=== PATIENT | female | born 2000 ===

== ENCOUNTER → 2023-06-08 | Outpatient (CLI) | payer OTHER ==
--- NOTE | 2023-06-08 12:58 | US ---
EXAMINATION TYPE: US OB >= 14 wk fetus DATE OF EXAM: 06/08/2023 COMPARISON: 05/12/2023 CLINICAL INDICATION: Female, 23 years old with history of Z34.90 SUPRVSN OF NORMAL ; Supervi wilfred of normal TECHNIQUE: Transabdominal (TA) GESTATIONAL AGE / DATING Physician Established: (14 weeks/3 days) EDC: 12/04/2023 Dates by LMP: (14 weeks/3 days) EDC: 12/04/2023 Dates by First Scan: (14 weeks/5 days) EDC: 12/02/2023 Dates by Current Scan: (14 weeks/5 days) EDC: 12/02/2023 Beta HCG (if available): Not available at this time SURVEY IUP: Single PLACENTA: Posterior There is a 1.0 x 0.6 x 0.7cm anechoic area seen. No internal color flow. Howev er, consider maternal de león. PREVIA: Questionable low lying. Can be better evaluated at anatomy scan. ERYN: 11.64 cm Normal CERVICAL LENGTH (transabdominal: norm > 3.0cm): 3.4 cm BIOMETRY PRESENTATION: Variable LIE: Transverse with head maternal R BPD: 2.95 cm 15 weeks / 3 days HC: 10.61 cm 15 weeks / 1 days AC: 8.09 cm 14 weeks / 4 days FL: 1.23 cm 13 weeks / 5 days ESTIMATED WEIGHT IN GRAMS: 91 grams ESTIMATED WEIGHT IN LBS/OZ: 0 lbs. 3 oz. WEIGHT PERCENTAGE BASED ON ESTABLISHED DATES: 19% HC/AC: 1.31 Normal FL/AC: 15% HEART RATE: 156 bpm RHYTHM: Normal IMPRESSION: 1 Single intrauterine gestation estimated at 14 weeks 4 days gestation based on current ultrasound me asurements. Cardiac activity measures 156 bpm. 2. Placenta may be low lying. Reevaluation in the short-term is recommended.
== END | disposition home or self-care (01) ==
LOC: RADUSWWP 10:30
PROVIDERS: ATTEND Obstetrics & Gynecology
DX: Z34.92 Encounter for supervision of normal pregnancy, unspecified, second trimester (principal)
CPT/HCPCS: 76805

== ENCOUNTER → 2023-07-31 | Outpatient (CLI) | payer OTHER ==
--- NOTE | 2023-07-31 19:49 | US ---
EXAMINATION TYPE: US OB anatomy transabd DATE OF EXAM: 07/31/2023 COMPARISON: NONE CLINICAL INDICATION: Female, 23 years old with history of Z34.90 SUPERVISION OF NORMAL ; TECHNIQUE: Transabdominal (TA) EXAM MEASUREMENTS: GESTATIONAL AGE / DATING Physician Established: (22 weeks/0 days) EDC: 12/04/23 Dates by LMP: LMP unknown Dates by First Scan: (22 weeks/0 days) EDC: 12/04/23 Dates by Current Scan for: (22 weeks/2 days) EDC: 12/02/23 SURVEY IUP: Single PLACENTA: Posterior PREVIA: No previa ERYN: 10.6 cm Normal CERVICAL LENGTH (transabdominal: norm > 3.0cm): 4.1 cm BIOMETRY PRESENTATION: Vertex LIE: Longitudinal BPD: 5.1 cm 21 weeks / 4 days HC: 19.7 cm 22 weeks / 0 days AC: 17.8 cm 22 weeks / 5 days FL: 3.9 cm 22 weeks / 4 days ESTIMATED WEIGHT IN GRAMS: 509 grams ESTIMATED WEIGHT IN LBS/OZ: 1 lbs. 2 oz. WEIGHT PERCENTAGE BASED ON ESTABLISHED DATE: 69 % HC/AC: 1.11 Normal FL/AC: 22% Normal HEART RATE: 156 bpm RHYTHM: Normal ANATOMY SEEN (within normal limits): * Lateral Vent (< 1 cm) 0.5 cm * Cisterna Magna (< 1.1 cm) 0.6 cm * Nuchal Fold (< 0.6 cm) 0.5 cm * Cerebellum (varies with age) 2.1 cm Choroid Plexus (bilateral) Midline Falx Cavus Septi Pellucidi Four Chamber Heart Outflow tracts: LVOT/RVOT Stomach Situs Nose / Lips Diaphragm Kidneys (bilateral) Bladder Cord Insert Three Vessel Cord Longitudinal Spine Transverse Spine Arms (bilateral) Legs (bilateral) IMPRESSION: Single live intrauterine gestation with ultrasound age 22 weeks 2 days. Additional information as linda cribed above.
== END | disposition home or self-care (01) ==
LOC: RADUSWWP 15:22
PROVIDERS: ATTEND Obstetrics & Gynecology
DX: Z34.92 Encounter for supervision of normal pregnancy, unspecified, second trimester (principal); Z3A.23 23 weeks gestation of pregnancy
CPT/HCPCS: 76811

== ENCOUNTER 2023-11-27 06:00 | Inpatient (IN) | payer OTHER ==
[2023-11-27] MEDS: LACTATED RINGERS 1,000 ML IV SCH (06:23)
[2023-11-27] MEDS ORDERED: miSOPROStoL 200 MCG TAB PO PRN (06:25)
[2023-11-27] MEDS ORDERED: OXYTOCIN 10 UNIT/ML 1 ML VIAL IM PRN (06:25)
[2023-11-27] MEDS ORDERED: TRANEXAMIC 1,000 MG/100ML-NACL 1,000 MG in EMPTY BAG 1 BAG IV PRN (06:25)
[2023-11-27] MEDS ORDERED: CARBOPROST TROMETHAMINE 250 MCG/ML 1 ML AMP IM PRN (06:25)
[2023-11-27] MEDS ORDERED: miSOPROStoL 200 MCG TAB RECTAL PRN (06:25)
[2023-11-27] MEDS ORDERED: TERBUTALINE 1 MG/ML VIAL SQ PRN (06:25)
[2023-11-27] MEDS ORDERED: METHYLERGONOVINE 0.2 MG/ML 1 ML AMP IM PRN (06:25)
[2023-11-27] MEDS: OXYTOCIN 30 UNITS/500 ML NS 30 UNIT in SALINE 1 500ML.BAG IV SCH (06:30)
[2023-11-27 06:50] LABS: Basophils % (A) 1 %; Eosinophils # (A) 0.1 k/uL (0-0.7); Eosinophils % (A) 1 %; HCT 36.9 % (34.0-46.0); Lymphocytes % (A) 27 %; MCHC 32.6 g/dL (31.0-37.0); MCV 92.1 fL (80.0-100.0); Monocytes # (A) 0.4 k/uL (0-1.0); Monocytes % (A) 5 %; Neutrophils # (A) 4.6 k/uL (1.3-7.7); Neutrophils % (A) 64 %; Platelet Count 216 k/uL (150-450); WBC 7.2 k/uL (3.8-10.6)
--- NOTE | 2023-11-27 07:02 | P.HPOB ---
History of Present Illness H&P Date: 11/27/23 Chief Complaint: induction of labor Ms. Guerra is a 23 year old at 39 weeks and 0 days gestation with EDC 12/04/2023 by LMP consistent with 14 week US who presents for elective induction of labor. The has been uncomplicated. The fetus is estimated to be average for gestational age. work-up: blood type O positive, antibody screen negative, rubella im mune, VDRL non-reactive, HBsAg negative, HIV negative, HCV Ab negative, gonorrhea negative, chalmydia negative, 1 hour GTT wnl, GBS negative. s/p TDap. Past Medical History Past Medical History: No Reported History History of Any Multi-Drug Resistant Organisms: None Reported Past Surgical History: No Surgical Hx Reported Past Anesthesia/Blood Transfusion Reactions: No Reported Reaction Past Psychological History: No Psychological Hx Reported Smoking Status: Never smoker Past Alcohol Use History: None Reported Past Drug Use History: None Reported - Past Family History Mother Family Medical History: No Reported History Medications and Allergies Home Medications Medication Instructions Recorded Confirmed Type Pnv No.154/Iron Fum/Folic Acid 1 tablet PO DAILY 11/27/23 11/27/23 History [ Plus Vitamin Tablet] Allergies Allergy/AdvReac Type Severity Reaction Status Date / Time No Known Allergies Allergy Verified 11/27/23 06:24 Exam Vital Signs Temp Pulse Resp BP Pulse Ox 11/27/23 06:24 97.0 F L 95 16 111/75 98 Intake and Output 11/26/23 11/26/23 11/27/23 14:59 22:59 06:59 Other: Weight 78.471 kg Focused physical exam is performed. This is a healthy-appearing in no apparent distress. Breathing is non-labored. Abdomen is gravid and non-tender. Cervical exam is 5 cm, 80 effacement, -2 station. AROM is undertaken with clear fluid noted. Extremities non-tender and non-edematous. heart tones are Category I and tocometer is graphing intermittent contractions. Results Result Diagrams: 11/27/23 06:25 Assessment and Plan Assessment: 23 year old at 39 weeks gestations presenting for induction of labor Plan: Admit, clear liquid diet, pitocin per protocol, epidural prn, anticipate vaginal delivery.
[2023-11-27] MEDS ORDERED: NALBUPHINE 10 MG/ML (10 ML MDV) IV PRN (08:15)
[2023-11-27] MEDS ORDERED: ROPIVACAINE 5 MG/ML 30 ML VIAL ONE (08:36)
[2023-11-27] MEDS ORDERED: fentaNYL (PF) 50 MCG/ML 5 ML AMP ONE (08:36)
[2023-11-27] MEDS ORDERED: SODIUM CHLORIDE 0.9% 250 ML BAG ONE (08:36)
[2023-11-27] MEDS: LIDOCAINE 0.5% (PF) 5 MG/ML (50 ML SDV) SQ PRN (11:42)
[2023-11-27] MEDS ORDERED: LANOLIN CREAM 1 GM TUBE TOPICAL PRN (12:12)
[2023-11-27] MEDS ORDERED: BENZOCAINE/MENTHOL SPRAY 1 GM/SPRAY AEROSOL TOPICAL PRN (12:12)
[2023-11-27] MEDS ORDERED: diphenhydrAMINE 50 MG CAP PO PRN (12:12)
[2023-11-27] MEDS ORDERED: diphenhydrAMINE 50 MG/ML 1 ML VIAL IVP PRN ×2 (12:12)
[2023-11-27] MEDS ORDERED: diphenhydrAMINE 25 MG CAP PO PRN (12:12)
[2023-11-27] MEDS ORDERED: ZOLPIDEM 5 MG TAB PO PRN (12:12)
[2023-11-27] MEDS ORDERED: SIMETHICONE 80 MG CHEWABLE PO PRN (12:12)
[2023-11-27] MEDS ORDERED: HYDROCORTISONE 2.5% RECTAL CREAM 30 GM TUBE RECTAL PRN (12:12)
--- NOTE | 2023-11-27 12:12 | P.PROBDLV ---
Vaginal Delivery Note - . Vaginal Delivery Note: DATE OF SERVICE: 11/27/2023 PROCEDURE: Normal Vaginal Delivery ATTENDING: Dr. Zoe Christie MD ESTIMATED BLOOD LOSS: 100 mL FINDINGS: VMI, Apgars 9/9. Weight 8#1oz (3670 grams) PROCEDURE: Ms. Guerra is a 23 year old at 39 weeks presenting to labor and delivery for elective induction of labor. The has been uncomplicated. For further details, please review the admitting H&P. Pitocin was titrated per protocol and AROM was undertaken at 717 revealing clear amniotic fluid. The patient received epidural anesthesia per her request. The patient was completely dilated at 1053. She pushed effectively with Category I heart tones. A viable male was delivered at 1141. The was placed on the maternal abdomen and bulb suctioned. The infant was noted to be spontaneously crying. Cord was clamped and cut after a 60-second delay. The was handed off to the pediatric team. Placenta was delivered whole with gentle cord traction at 1143. Oxytocin was started to facilitate uterine tone. Uterine fundus was found to be firm and below the umbilicus upon fundal massage. Thorough examination of the cervix, vagina, periurethral area, and perineum revealed a small first degree laceration that was infiltrated with lidocaine and repaired with 3-0 Vicryl in a running fashion. The patient is stable and allowed to begin the bonding process.
[2023-11-27] MEDS: IBUPROFEN 600 MG TAB PO PRN (18:15)
[2023-11-27] MEDS: SENNOSIDES-DOCUSATE SODIUM 1 EACH TAB PO SCH (20:58)
[2023-11-27] MEDS: ACETAMINOPHEN TAB 325 MG TAB PO PRN (20:59)
[2023-11-28 04:50] LABS: Basophils % (A) 0 %; Eosinophils # (A) 0.1 k/uL (0-0.7); Eosinophils % (A) 1 %; HCT 31.8 % (34.0-46.0); HGB 10.1 gm/dL (11.4-16.0); Hypochromasia Slight; Lymphocytes # (A) 1.9 k/uL (1.0-4.8); Lymphocytes % (A) 24 %; MCH 29.9 pg (25.0-35.0); MCV 93.7 fL (80.0-100.0); Mean Platelet Volume 12.4; Monocytes # (A) 0.5 k/uL (0-1.0); Monocytes % (A) 6 %; Neutrophils # (A) 5.4 k/uL (1.3-7.7); Neutrophils % (A) 67 %; Platelet Count 168 k/uL (150-450); RBC 3.39 m/uL (3.80-5.40); RDW 14.1 % (11.5-15.5); WBC 8.1 k/uL (3.8-10.6)
--- NOTE | 2023-11-28 09:12 | P.DS ---
Providers Date of admission: 11/27/23 06:05 Expected date of discharge: 11/28/23 Attending physician: Zoe Christie MD Primary care physician: Stated None Hospital Course: Ms. Guerra is a 23 year old now PPD#1 s/p normal vaginal delivery. The patient is doing well this morning and had no acute events overnight. She has no complaints this morning. She reports minimal lochia, passing flatus, voiding without difficulty, ambulating, and eating/drinking without nausea or vomiting. doing well at bedside, s/p circumcision. She denies chest pain, shortness of breathing, fevers, or chills overnight. She denies pain or swelling in the legs. restrictions are reviewed with the patient including pelvic rest for 6 weeks. The patient is encouraged to call the office if she experiences any heavy bleeding, foul-smelling discharge, breast complaints, or any if she has any other concerns. She will follow up in the office in 6 weeks for exam. All questions are answered. Assessment: 23 year old now PPD#1 s/p normal vaginal delivery Patient Condition at Discharge: Good Plan - Discharge Summary New Discharge Prescriptions: New Ibuprofen [Motrin] 600 mg PO Q6HR PRN #30 tab PRN Reason: Mild Pain (Scale 1 To 3) Acetaminophen Tab [Tylenol] 650 mg PO Q6H PRN #30 tab PRN Reason: Mild Pain (Scale 1 To 3) polyethylene glycoL 3350 [Miralax] 17 gm PO DAILY PRN #527 gm PRN Reason: Constipation No Action Pnv No.154/Iron Fum/Folic Acid [ Plus Vitamin Tablet] 1 tablet PO DAILY Discharge Medication List Pnv No.154/Iron Fum/Folic Acid [ Plus Vitamin Tablet] 1 tablet PO DAILY 11/27/23 [History] Acetaminophen Tab [Tylenol] 650 mg PO Q6H PRN #30 tab 11/28/23 [Rx] Ibuprofen [Motrin] 600 mg PO Q6HR PRN #30 tab 11/28/23 [Rx] polyethylene glycoL 3350 [Miralax] 17 gm PO DAILY PRN #527 gm 11/28/23 [Rx] Follow up Appointment(s)/Referral(s): Zoe Christie MD [STAFF PHYSICIAN] - 01/08/24 11:30 am Activity/Diet/Wound Care/Special Instructions: Instructions 1. Do not begin any exercise program for 3 weeks. 2. Do not resume sexual relations for 6 weeks or longer if uncomfortable. 3. You may take tub baths or showers at any time. 4. You may use tampons if desired after 6 weeks. 5. Keep any areas repaired with stitches clean and dry. 6. If you are not nursing, wear a good fitting, supportive bra during the day and limit fluid intake for at least 1 week to prevent breast engorgement. 7. Call the office, , within the next week to make appointment for your 6 week checkup if it has not already been made. 8. Report any of the following occurrences to the doctor promptly: a. Heavy, excessive bleeding b. Chills, fever c. Burning or frequency of urination d. Pain or redness and breasts if nursing e. Increasing pain or swelling of vulva (stitches). In addition to the above instructions, the following additional should be followed: 1. No heavy lifting or straining (exercising) until after 6 week checkup. 2. Keep abdominal incision clean and dry: You may wear a dressing if more comfortable. 3. Make office appointment for 2 weeks after delivery date. Discharge Disposition: HOME SELF-CARE
[2023-11-29 02:05] VITALS: RESP 16
[2023-11-29 08:26] VITALS: BP 109/73; PULSE 72; TEMP 98.3
== END 2023-11-29 13:00 | disposition home or self-care (01) | DRG 560 ==
LOC: 4FBP 06:05
PROVIDERS: ADMIT Obstetrics & Gynecology; ATTEND Obstetrics & Gynecology
PROC: 4A1HXCZ Monitoring of Products of Conception, Cardiac Rate, External Approach (ICD-10-PCS; principal; 2023-11-27)
PROC: 3E033VJ Introduction of Other Hormone into Peripheral Vein, Percutaneous Approach (ICD-10-PCS; principal; 2023-11-27)
PROC: 0HQ9XZZ Repair Perineum Skin, External Approach (ICD-10-PCS; principal; 2023-11-27)
PROC: 10907ZC Drainage of Amniotic Fluid, Therapeutic from Products of Conception, Via Natural or Artificial Opening (ICD-10-PCS; principal; 2023-11-27)
PROC: 10E0XZZ Delivery of Products of Conception, External Approach (ICD-10-PCS; principal; 2023-11-27)
DX: O70.0 First degree perineal laceration during delivery (principal); Z37.0 Single live birth; Z3A.39 39 weeks gestation of pregnancy; Z28.310 Unvaccinated for COVID-19
CPT/HCPCS: 85025; 86850; 86900; 86901